=== PATIENT | female | born 1940 | race African-American/Black ===

== ENCOUNTER 2023-06-10 12:10 | Emergency (ER) | payer OTHER, MEDICAID ==
[~2023-06-10] VITALS: Ht 160 cm; Wt 61.0 kg
[2023-06-10 12:22] VITALS: O2SAT 100
[2023-06-10 12:53] LABS: BG BASE EXCESS 4.8 mmol/L (-2.0-2.0); BG CARBOXYHEMOGLOBIN 0.9 % (0.5-1.5); BG HCO3 ACT 29.8 mmol/L (22.0-26.0); BG METHEMOGLOBIN 0.3 % (0.0-1.5); BG OXYHEMOGLOBIN 97.8 % (94.0-97.0); BG PCO2 45.5 mmHg (35.0-45.0); BG PH 7.434 (7.350-7.450); BG PO2 124.3 mmHg (75.0-100.0); BG SAMPLE SITE RIGHT BRACHIAL; BG TOTAL HEMOGLOBIN 13.3 g/dL (12.0-18.0); BG VENT MODE NASAL CANNULA
[2023-06-10 13:15] LABS: BASOPHILS % 0.3 % (0.0-2.0); DIFFERENTIAL COMMENT 0; EOSINOPHILS % 2.1 % (0.0-5.0); HEMATOCRIT. 41.2 % (36.0-48.0); HEMOGLOBIN. 12.6 g/dL (12.0-16.0); MEAN CORPUSCULAR HEMOGLOBIN 24.2 pg (28.0-32.0); MEAN CORPUSCULAR HGB CONC 30.6 g/dL (31.0-37.0); MEAN PLATELET VOLUME 7.8 fl (7.4-10.4); MONOCYTES % 8.8 % (2.0-8.0); NEUTROPHILS % 80.8 % (40.0-76.0); PLATELET 171 x1000/uL (130-400); RED BLOOD CELL COUNT 5.22 mill/uL (4.2-5.4); RED CELL DISTRIBUTION WIDTH 19.7 % (11.6-14.6)
[2023-06-10 13:31] LABS: INR 1.1; PROTHROMBIN TIME 11.3 sec (9.6-11.0)
[2023-06-10 13:42] LABS: CHLORIDE 103 mEq/L (98-107); INDEX HEMOLYSI 1 (1-3); INDEX ICTERIC 1 (1-4); INDEX LIPEMIC 1 (1-3); SODIUM 141 mEq/L (136-145)
[2023-06-10 14:17] LABS: CLARITY URINE CLEAR (CLEAR); COLOR URINE YELLOW (YELLOW); GLUCOSE URINE NEGATIVE (NEGATIVE); KETONES URINE NEGATIVE (NEGATIVE); LEUKOCYTE ESTERASE URINE NEGATIVE (NEGATIVE); NITRITE URINE NEGATIVE (NEGATIVE); OCCULT BLOOD URINE 2+ (NEGATIVE); PH URINE 5.5 (4.5-8.0); PROTEIN URINE TRACE (NEGATIVE); SPECIFIC GRAVITY URINE 1.012 (1.005-1.030)
[2023-06-10 14:20] LABS: BACTERIA URINE NONE SEEN; WBC URINE NONE SEEN /hpf (0-2); YEAST URINE NONE SEEN
[2023-06-10 14:28] LABS: LACTIC ACID 2.1 mmol/L (0.4-2.0)
[2023-06-10 14:33] LABS: MUCUS URINE 1+ /lpf (< = 2+); SQUAMOUS EPITHELIAL CELL URINE FEW /lpf (RARE/1+)
[2023-06-10 15:40] LABS: ALANINE AMINOTRANSFERASE 25 IU/L (13-61); ALBUMIN 2.5 g/dL (3.4-5.0); ASPARTATE AMINOTRANSFERASE 18 IU/L (15-37); CALCIUM 8.7 mg/dL (8.5-10.1); CARBON DIOXIDE 30 mEq/L (21-32); CREATININE 0.6 mg/dL (0.6-1.3); GLUCOSE 102 mg/dL (70-105); PROTEIN TOTAL 6.4 g/dL (6.0-8.3); UREA NITROGEN BLOOD 24 mg/dL (7-21)
[2023-06-10 15:42] LABS: NT PRO B-TYPE NATRIURETIC PEP 2450 pg/mL (5-125)
[2023-06-10 15:43] LABS: TROPONIN I HIGH SENSITIVITY 77 ng/L (<54)
[2023-06-10 17:53] VITALS: BP 143/81; PULSE 67; RESP 16; TEMP 97.9
[2023-06-10 18:27] LABS: BILIRUBIN TOTAL 0.5 mg/dL (0.1-1.0)
== END 2023-06-10 17:55 | disposition home or self-care (01) ==
LOC: ER 12:10 → EDBEDREQ 15:54 → EDBEDREQTM 15:54 → ER 17:55
DX: U07.1 COVID-19 (principal); R79.89 Other specified abnormal findings of blood chemistry; I25.2 Old myocardial infarction; I10 Essential (primary) hypertension; J44.1 Chronic obstructive pulmonary disease with (acute) exacerbation; E78.00 Pure hypercholesterolemia, unspecified
CPT/HCPCS: 36415; 36600; 71045; 80053; 81003; 82375; 82805; 83605; 83880; 84145; 84484; 85025; 87804; 93005; 99285